=== PATIENT | female | born 1995 | race Caucasian/White ===

== ENCOUNTER 2019-07-22 13:37 | Inpatient (IN) ==
[2019-07-22] MEDS ORDERED: Ondansetron 4 MG/2 ML VIAL IVP PRN ×2 (15:01→15:39)
[2019-07-22] MEDS ORDERED: Naloxone 0.4 MG/ML INJ IVP PRN ×2 (15:01→15:39)
[2019-07-22] MEDS ORDERED: Metoclopramide 10 MG/2 ML VIAL IVP PRN (15:01)
[2019-07-22] MEDS ORDERED: miSOPROStol 25 MCG TABLET VG PRN (15:01)
[2019-07-22] MEDS ORDERED: *HR* Nalbuphine 10 MG/ML AMPUL IVP PRN (15:01)
[2019-07-22] MEDS ORDERED: Famotidine 20 MG/2 ML VIAL IVP PRN (15:01)
[2019-07-22] MEDS ORDERED: Oxytocin 20 units/ LR 1000 mL 20 UNIT/1,000 ML BAG IVC SCH (15:15)
[2019-07-22] MEDS ORDERED: C1 ESTERASE INHIBITOR IVP SCH ×2 (15:15→15:30)
[2019-07-22] MEDS ORDERED: Ringers Solution, Lactated 1,000 ML IVC SCH (15:15)
[2019-07-22] MEDS ORDERED: FIRAZYR SQ PRN ×2 (15:22→15:30)
[2019-07-22] MEDS ORDERED: *HR* FentaNYL (PF) 100 MCG/2 ML VIAL EP ONE (15:39)
[2019-07-22] MEDS ORDERED: Ropivacaine/PF 0.2% 20 ML VIAL EP ONE (15:39)
[2019-07-22] MEDS ORDERED: EPHEDrine 50 MG/ML VIAL IVP PRN (15:39)
[2019-07-22] MEDS ORDERED: Epidural Premix (fent/bupiv) 110 ML EP SCH (15:45)
[2019-07-22 16:01] LABS: Basophils % 0.4 %; Eosinophils % 0.1 %; Hematocrit 38.9 % (35.3-44.9); Hemoglobin 12.9 g/dL (11.5-15.4); Immature Granulocytes % 0.2 % (0-4); Lymphocytes # 1.7 K/mcL (0.6-4.6); Lymphocytes % 20.2 %; Mean Corpuscular HGB Conc 33.2 g/dL (31.6-35.5); Mean Corpuscular Hemoglobin 29.5 pg (28.0-33.3); Mean Platelet Volume 10.9 fL (9.4-12.4); Monocytes # 0.3 K/mcL (0.0-1.3); Monocytes % 3.5 %; Neutrophils # 6.3 K/mcL (1.6-8.9); Platelet Count 158 K/mcL (140-400); Red Blood Count 4.37 M/mcL (3.82-4.97); Red Cell Distribution Width 14.3 % (11.5-14.5); Segmented Neutrophils % 75.6 %; White Blood Count 8.3 K/mcL (4.3-11.1)
--- NOTE | 2019-07-22 16:07 | Anesthesia Evaluation PreOp ---
Date of Encounter: 07/22/19 Time of Encounter: 16:00 - Past History Planned Operation: BUCK Cardiac History: Denies any Significant Hx Pulmonary History: Denies Any Significant HX BREAKER LAYER History: Other (history of mild backaches with chiropractor use.) Other Medical History: GERD, Other (Hereditary angioedema, treated with Cinryze and Firazyr. Last episode of swelling was several months ago. Patient states that triggers include pain. History of stomach ulcer, gestational diabetes- metformin controlled.) Anesthesia History: No Prior Anesthetic Complications, Past Anesthesia (Previous epidural without complication, wisdom teeth extraction, Nasal surgery post fracture, and EGD) : Yes Alcohol Use: none Drug use: none Medications and Allergies Omeprazole [PriLOSEC] 40 mg PO DAILY 03/31/17 [History] C1 Esterase Inhibitor [Cinryze] 1 vial IV 2XW 05/12/17 [History] Icatibant Acetate [Firazyr] 30 mg SQ AD 05/12/17 [History] Vitamin Tablet 1 tab PO DAILY 07/22/19 [History] metFORMIN 1,000 mg PO HS 07/22/19 [History] Allergy/AdvReac Type Severity Reaction Status Date / Time ciprofloxacin [From Cipro] AdvReac Hives Verified 11/22/18 13:42 - Meds/Allergy Pre-op Review Medications Reviewed: Yes Allergies Reviewed: Yes Beta Blockers on Current Med List: No Anesthesia Results - Labs 07/22/19 15:40 Anesthesia Exam BP 126/71 P 75 R 16 T 98.3 Height: 5'6" Weight: 94.8kg NPO (# of Hours): 4hr solids 1hr clears Pain Scale: 2 Pain Scale Used: Numeric (1 - 10) - HEENT Pupil (Motor): Pupils equal Mallampati: II Teeth: Normal Oral Opening: Greater than 3 - BREAKER LAYER LOC: Oriented BREAKER LAYER Motor: Normal RUE, Normal LUE, Normal RLE, Normal LLE, Normal Face BREAKER LAYER Sensory: Normal: RUE, LUE, RLE, LLE, Face - Cardiac Rhythm: Regular Murmur: None JVD: No Carotid Bruit: No - Pulmonary Breath Sounds: bilateral Clear Respiratory Effort: Symmetrical Anesthesia Assess/Plan ASA Score: 3 Level of consciousness: Cooperative, Oriented, Tranquil Anesthetic Plan: Epidural Autologous Blood: No Monitoring Plan: Standard Monitors Recovery Plan: Other
--- NOTE | 2019-07-22 17:25 | Event Note ---
Date of Encounter: 07/22/19 Time of Encounter: 17:23 Discussed double cervical wise balloon placement and patient is agreeable to this plan along with vaginal Cytotec. Double cervical wise balloon inserted without difficulty, 60mL sterile water instilled into uterine balloon, 40mL sterile water instilled into vaginal balloon. Patient tolerated with minimal discomfort.
--- NOTE | 2019-07-22 17:36 | OB/GYN History & Physical ---
Date of Encounter: 07/22/19 Time of Encounter: 17:19 Assessment and Plan (1) and not yet delivered in third trimester Current visit: Yes Status: Acute (2) 37 weeks gestation of Current visit: Yes Status: Acute (3) IUGR (intrauterine growth restriction) Current visit: Yes Status: Acute (4) Oligohydramnios Current visit: Yes Status: Acute Patient will be induced with Gerber catheter and Cytotec plan is to anticipate normal spontaneous vaginal delivery patient will need an early epidural to help with pain control Qualifiers: Fetus number: single or unspecified fetus Trimester: third trimester Qualified Code(s): O41.03X0 - Oligohydramnios, third trimester, not applicable or unspecified (5) Hereditary angioedema Current visit: Yes Status: Acute patient will give herself Cinryze prior to induction History of Present Illness HPI: Ms. Nails is a 24 year old female 2 para 1 at 37-5/7 weeks who was sent in from the office secondary to the IUGR with oligohydramnios. Patient was seen recently at [facility] for intrauterine growth restriction baby was at the 15th percentile and amniotic fluid index was 4.9. Patient suffers with angioedema is being followed by Dr. Delacruz manager parking. Patient's flareup is if she gets stressed to has pain she has Cinryze which she guesses self IV prior to any episodes or if she is having outbreak. Patient was counseled that she would need to give herself a dose before induction to prevent a potential flareup. Gestational diabetic on metformin states blood sugars have been running well did not do one this morning. She denies any leaking of fluid is still having good movement has been having contractions on and off for the last 2-3 days. Patient is A positive, GBS negative, rubella positive, Varicella positive Past Med Surg Social Fam HX - Past Medical History Source: patient, old records reviewed Additional medical history: Hereditary angioedema, gestational diabetes, Psychiatric history: anxiety - Past Surgical History Additional surgical history: reconstructive nasal sx, wisdom teeth - Social History Smoking Status: Current some day smoker Packs per day: <0.5 Smokeless Tobacco Status: No Alcohol use: none Drug use: none Occupational status: employed Current living situation: Home - Independent Activity Level: Independent ambulation Recent Out of Country Travel Within the Last 8 Weeks: No Exposure or Possible Exposure to Illness During Travel: No - Family History Father Living Status: Still Living Hx Family Cardiac Disorders: Yes Hx Family Respiratory Disorders: No Hx Family Cancer: No Hx Family GI Disorders: No Hx Family Genitourinary Disorders: No Hx Family Endocrine Disorder: No Hx Family Musculoskeletal Disorders: No Hx Family Neuromuscular Disorders: No Hx Family Neurologic Disorders: No Hx Family HEENT Disorders: No Hx Family Autoimmune Disorders: No Hx Family Reproductive Disorders: No Hx Family Psychosocial Disorders: No Hx Family Medical Disorders: No - Additional Family History Additional family history: Family history noncontributory at this time Obstetrical History - Pregnancies : 2 Para: 1 Term: 0 : 0 Ab's: 0 Livin Medications and Allergies Omeprazole [PriLOSEC] 40 mg PO DAILY 03/31/17 [History] C1 Esterase Inhibitor [Cinryze] 1 vial IV 2XW 05/12/17 [History] Icatibant Acetate [Firazyr] 30 mg SQ AD 05/12/17 [History] Vitamin Tablet 1 tab PO DAILY 07/22/19 [History] metFORMIN 1,000 mg PO HS 07/22/19 [History] Allergy/AdvReac Type Severity Reaction Status Date / Time ciprofloxacin [From Cipro] AdvReac Hives Verified 11/22/18 13:42 Review of System OB All systems PM: reviewed and no additional remarkable complaints except as stated Exam - Constitutional Constitutional: well developed, well nourished, no acute distress, average body habitus - HEENT HEENT: EOMI, PERRL, Mucus Membranes Moist - Neck Neck exam: full ROM - Lungs Respiratory exam: CTAB - Cardiovascular Cardiovascular exam: RRR - Abdomen Abdomen: Present: bowel sounds normal, gravid ( heart tones 140s reactive occasional contractions seen) - Vagina Vagina: Present: normal moisture - Cervix Dilation: 1 Station: -3 (50) Results Result Diagrams: 07/22/19 15:40 All other labs normal. - VTE Reasons for not Prescribing Prophylaxis: Treatment not Indicated - Low risk for VTE
[2019-07-22] MEDS ORDERED: *HR* FentaNYL (PF) 100 MCG/2 ML VIAL ONE (19:49)
[2019-07-22 21:00] LABS: Amphetamine Screen,Urine Negative ng/mL (Cutoff=1000); Barbiturate Screen,Urine Negative ng/mL (Cutoff=200); Benzodiazepines Screen,Urine Negative ng/mL (Cutoff=200); Cannabinoid Screen,Urine Negative ng/mL (Cutoff = 50); Cocaine Screen,Urine Negative ng/mL (Cutoff= 300); Opiate Screen,Urine Negative ng/mL (Cutoff=300); Phencyclidine Screen,Urine Negative ng/mL (Cutoff=25)
--- NOTE | 2019-07-22 21:41 | Anesthesia Procedures ---
Date of Encounter: 07/22/19 Time of Encounter: 20:54 Procedures: Anesthesia - Epidural/Spinal Patient ID/Chart reviewed: Yes Patient examined: Yes OB Eval: Gestational age: 37.5 OB Eval: : 2 OB Eval: Hx Para: 1 OB Eval: Dilated at (cm): 3 OB Eval: Contractions: Non-stressed pattern Consent Obtained: Yes Supplemental Oxygen: None/Room Air Site Prep: Aseptic Technique, Sterile prep and drape, Povidone-Iodine 1% Patient position: upright Local Anesthetic: Lidocaine 1% Amount of Local Anesthetic used: 3 Touhy Needle Gauge: 18 Touhy Needle Depth (cm): 6 Catheter Depth at Skin (cm): 15 Test Dose (1.5% Lido + Epi): Volume given (mls): 3 Test Dose Result: Negative Loading Dose: Fentanyl (mcg): 100 Loading Dose: Other: Ropivicaine 0.2% 5ml, 3ml Normal saline Loading Dose Administered: Thru Catheter Infusion Rate (mls/hr): [address]: Tegaderm, Tape Interspace Used: L3-L4 Loss of Resistance (EDEN): Yes Blood: No CSF: No Paresthesia: No Procedure: BUCK placed 1st pass in upright position. EDEN achieved with normal saline. Catheter threaded with ease to 15cm at the skin. Test dose negative. Pt stated comfort with epidural bolus dose administration. VSS throughout. Vitals + FHT's: 2054 BP 145/67 P 97 R 20 2125 BP 140/76 P 85 R 16
--- NOTE | 2019-07-22 23:11 | OB Labor Progress Note ---
Date of Encounter: 07/22/19 Time of Encounter: 23:09 Labor Progress Note - Subjective Subjective: Patient comfortable after her epidural Gerber catheter was out and she is now ruptured. Has been having some late decelerations is on no additional augmentation at this time. Did discuss with the patient of this does not resolve and she does not continue to progress cervically we may have to do a section. - Cervix Cervix: 4-5/80/-3 - Heart Tones Heart Tones: heart tones 140s reactive with occasional late decelerations noted - [place]: Contractions every 2-3 minutes - Interventions Interventions: Continue current care we will do positional changes it is not resolved. Will Talk to patient again about section
[2019-07-23] MEDS ORDERED: Ropivacaine/PF 0.2% 20 ML VIAL ONE (00:25)
[2019-07-23] MEDS ORDERED: *HR* Oxytocin 10 UNIT/ML VIAL IM ONE (00:28)
[2019-07-23] MEDS ORDERED: Ondansetron 4 MG/2 ML VIAL ONE (00:39)
[2019-07-23] MEDS ORDERED: *HR* Morphine Sulfate/PF 10 MG/10 ML AMPUL ONE (00:40)
[2019-07-23] MEDS ORDERED: Ibuprofen 400 MG TABLET PO PRN (01:17)
[2019-07-23] MEDS ORDERED: *HR* OxyCODONE/APAP 5/325 TABLET PO PRN (01:17)
--- NOTE | 2019-07-23 01:28 | OB/GYN Procedure Note ---
Section - Date of procedure: 07/23/19 Preop diagnosis: other (Urine at 37-5/7 weeks, intrauterine growth restriction, oligohydramnios, category 3 tracing with repetitive late decelerations) Post-op diagnosis: same (With placental abruption) Procedure: primary low transverse Surgeon: Ignacio Herrmann Blood Loss: 500 Was there an human services assistant present: Yes Alarm Mechanism Adjuster: Kendall Davis (OMS 3) Patient Financial Counselor: Satinder Echeverria Anesthesia Type: Epidural section complications: none Disposition: L&D Recovery Room Specimens: Placenta, Cord gasses - Infant (s) Infant A Infant Delivery Date: 07/23/19 Delivery Time: 00:26 Presentation: vertex Position: JOAQUÍN Route of delivery: other ( section) Gender: Female Viability: Viable Pounds: 4 Ounces: 11 Gram Weight: 2.12 kg at 1 minute: 7 at 5 minutes: 9 Placenta: spontaneous Cord: 3 umbilical vessels - Narrative Narrative: Patient is a 24-year-old 2 para 1 at 37 and 5 5/7 weeks who presented for induction of labor secondary to IUGR with oligohydramnios. Patient had an ultrasound recently at [facility] and showed baby to be IUGR at the 15th percentile amniotic fluid index was 6 cm at that time. Recommended repeat MARGIE today when he performed it was 4.9 patient has a history of hereditary angioedema and patient was sent for induction of labor due to these medical conditions. She is also a gestational diabetic A2 on metformin. Patient was brought to labor and delivery she did receive a Gerber catheter and Cytotec after the catheter was removed she was artificially ruptured. Patient did receive an epidural as soon after was patient started having late decelerations. She did not get any additional augmentation the late decelerations would resolve and then come back. Patient was still 5 cm and she had a deep deceleration down to approximately 60 approximately 60 seconds with slow return to baseline was at this point we called a unscheduled and the patient for section. Procedure: Patient was taken to the operating room where epidural anesthesia was found be adequate. She was placed in the dorsal supine position prepped and draped in usual fashion. We did have heart tones in 130s at this time no decelerations noted. Patient was prepped and draped in the usual fashion and then a Timeout was obtained. A Pfannenstiel incision was made and the incision was carried down through the underlying tissue until the fascia was identified. Fascia was nicked in midline extended laterally with the Moore scissors. The superior and inferior edge of the fascia were grasped tented up and dissected off the rectus muscle. Rectus muscles were in the midline parietal peritoneum was identified tented up and entered sharply. This was extended superiorly and inferiorly with Metzenbaum scissors. A bladder blade was inserted the vesicouterine peritoneum was identified tented up and entered sharply bladder flap was created digitally. The lower uterine segment was incised with a scalpel extended laterally with digital manipulation. The infant's head was brought to the incision followed by the infant the cord was clamped and cut infant was handed off to waiting pediatric dictating. Cord gases were obtained. Cord blood was not necessary at this time. Placenta was then delivered spontaneously. A self-retaining Mikey retractor was placed in the abdomen uterus is then identified cleaned of all clots and debris done in the lower uterine segment was closed using 0 Vicryl in a running locking stitch by 2 layer closure. Good hemostasis was noted. The retractor was removed the gutters were cleaned of all clots and debris then copiously irrigated with no active bleeding noted. The parietal peritoneum was closed using 2-0 Vicryl in a running stitch the fascia was then closed using a #1 stratafix In a running stitch the subcutaneous tissue was closed using a 0 chromic in a running stitch and the skin was closed using 4-0 Vicryl in subcuticular manner. A Prineo dressing was applied and the patient was taken to the recovery room in stable condition. All needles lap sponge counts were correct 3 she did receive preoperative antibiotics.
--- NOTE | 2019-07-23 01:57 | Anesthesia Evaluation Post Op ---
Date of Encounter: 07/23/19 Time of Encounter: 01:52 - Vital Signs Vital Signs: BP 108/57 P 83 R 16 T 98.3 - Lungs Lungs: Clear Ascult./Percussion - Airway Airway: Non-obstructed - Cardiovascular Regular Rate - Mental Status Mental Status: Alert & Oriented, Answers Appropriately - Pain Pain Scale: 2 Pain Scale used: Numeric (1 - 10) - Nausea Vomiting Nausea Vomiting: Not Present - Hydration Hydration: NPO, Gerber catheter - Discharge PostOp Status: Transfer Patient to floor
[2019-07-23] MEDS ORDERED: *HR* OxyCODONE/APAP 10/325 TABLET PO PRN (04:33)
[2019-07-23] MEDS ORDERED: Oxytocin 20 units/ LR 1000 mL 20 UNIT/1,000 ML BAG IVC SCH (04:33)
[2019-07-23] MEDS ORDERED: Ringers Solution, Lactated 1,000 ML IVC SCH (04:33)
[2019-07-23] MEDS ORDERED: Sennosides 8.6 MG TABLET PO PRN (04:33)
[2019-07-23] MEDS ORDERED: Simethicone 80 MG TAB.CHEW PO PRN (04:33)
[2019-07-23] MEDS ORDERED: Ondansetron 4 MG/2 ML VIAL IVP PRN (04:33)
[2019-07-23] MEDS ORDERED: Metoclopramide 10 MG/2 ML VIAL IVP PRN (04:33)
[2019-07-23] MEDS: *HR* OxyCODONE/APAP 5/325 TABLET PO PRN ×3 (04:56→14:40)
[2019-07-23] MEDS ORDERED: Famotidine 20 MG TABLET PO ONE (04:59)
[2019-07-23] MEDS ORDERED: Acetaminophen IV 1,000 MG/100 ML INFUS..BTL IVPB SCH (06:00)
[2019-07-23] MEDS: Prenatal Vit/FA 1 EACH TABLET PO SCH (07:48)
[2019-07-23] MEDS ORDERED: ICATIBANT ACETATE 30 MG SQ PRN (09:00)
[2019-07-23] MEDS ORDERED: FIRAZYR SQ PRN (16:49)
[2019-07-23] MEDS: Ibuprofen 600 MG TABLET PO PRN (18:05)
[2019-07-24] MEDS: Ibuprofen 600 MG TABLET PO PRN ×3 (00:17→16:27)
[2019-07-24] MEDS: *HR* OxyCODONE/APAP 5/325 TABLET PO PRN ×4 (02:08→20:17)
[2019-07-24 07:04] LABS: Basophils % 0.3 %; Eosinophils # 0.1 K/mcL (0.0-0.6); Eosinophils % 1.1 %; Hematocrit 30.3 % (35.3-44.9); Immature Granulocytes % 0.2 % (0-4); Lymphocytes # 1.7 K/mcL (0.6-4.6); Lymphocytes % 27.2 %; Mean Corpuscular HGB Conc 33.3 g/dL (31.6-35.5); Mean Corpuscular Hemoglobin 30.5 pg (28.0-33.3); Mean Corpuscular Volume 91.5 fL (83.0-100.0); Mean Platelet Volume 10.8 fL (9.4-12.4); Monocytes # 0.3 K/mcL (0.0-1.3); Monocytes % 5.3 %; Neutrophils # 4.1 K/mcL (1.6-8.9); Platelet Count 118 K/mcL (140-400); Red Blood Count 3.31 M/mcL (3.82-4.97); Red Cell Distribution Width 14.4 % (11.5-14.5); Segmented Neutrophils % 65.9 %; White Blood Count 6.3 K/mcL (4.3-11.1)
[2019-07-24 07:11] LABS: Hemoglobin 10.1 g/dL (11.5-15.4)
[2019-07-24] MEDS: Prenatal Vit/FA 1 EACH TABLET PO SCH (08:49)
--- NOTE | 2019-07-24 09:28 | OB/GYN Progress Note ---
Date of Encounter: 07/24/19 Time of Encounter: 09:26 - Assessment and Plan (1) Status post section Current Visit: Yes Status: Acute Patient meeting day two milestones. Pain well-controlled with prescribed medications. Voiding without difficulty, tolerating regular diet, bleeding light. No bowel movement yet. Anticipate discharge (2) Gestational diabetes Current Visit: Yes Status: Acute Follow up in 4-12 weeks for 2-hr GTT Qualifiers: Gestational diabetes mellitus control: oral hypoglycemic-controlled Trimester: unspecified trimester Qualified Code(s): O24.415 - Gestational diabetes mellitus in , controlled by oral hypoglycemic drugs (3) Hereditary angioedema Current Visit: Yes Status: Acute Patient has meds at bedside should a flare occur. (4) Breast feeding status of mother Current Visit: Yes Status: Acute support as needed Will provide breast pump prescription Subjective - Subjective Principal diagnosis: Status post primary section Interval history: Date of procedure: 07/23/19 Preop diagnosis: other (Urine at 37-5/7 weeks, intrauterine growth restriction, oligohydramnios, category 3 tracing with repetitive late decelerations) Post-op diagnosis: same (With placental abruption) Procedure: primary low transverse Surgeon: Ignacio Velez Quantitated Blood Loss: 500 Was there an retail sales assistant present: Yes Pipe Fitter Gas Pipe: Kendall Davis (OMS 3) Finish Filer: Satinder Echeverria Anesthesia Type: Epidural section complications: none Disposition: L&D Recovery Room Specimens: Placenta, Cord gasses - (s) Infant A Infant Delivery Date: 07/23/19 Delivery Time: 00:26 Presentation: vertex Position: JOAQUÍN Route of delivery: other ( section) Gender: Female Viability: Viable Pounds: 4 Ounces: 11 Gram Weight: 2.12 kg at 1 minute: 7 at 5 minutes: 9 Placenta: spontaneous Cord: 3 umbilical vessels - Narrative Narrative: Patient is a 24-year-old 2 para 1 at 37 and 5 5/7 weeks who presented for induction of labor secondary to IUGR with oligohydramnios. Patient had an ultrasound recently at [facility] and showed baby to be IUGR at the 15th percentile amniotic fluid index was 6 cm at that time. Recommended repeat MARGIE today when he performed it was 4.9 patient has a history of hereditary angioedema and patient was sent for induction of labor due to these medical conditions. She is also a gestational diabetic A2 on metformin. Patient was brought to labor and delivery she did receive a Gerber catheter and Cytotec after the catheter was removed she was artificially ruptured. Patient did receive an epidural as soon after was patient started having late decelerations. She did not get any additional augmentation the late decelerations would resolve and then come back. Patient was still 5 cm and she had a deep deceleration down to approximately 60 approximately 60 seconds with slow return to baseline was at this point we called a unscheduled and the patient for section. Procedure: Patient was taken to the operating room where epidural anesthesia was found be adequate. She was placed in the dorsal supine position prepped and draped in usual fashion. We did have heart tones in 130s at this time no decelerations noted. Patient was prepped and draped in the usual fashion and then a Timeout was obtained. A Pfannenstiel incision was made and the incision was carried down through the underlying tissue until the fascia was identified. Fascia was nicked in midline extended laterally with the Moore scissors. The superior and inferior edge of the fascia were grasped tented up and dissected off the rectus muscle. Rectus muscles were in the midline parietal peritoneum was identified tented up and entered sharply. This was extended superiorly and inferiorly with Metzenbaum scissors. A bladder blade was inserted the vesicouterine peritoneum was identified tented up and entered sharply bladder flap was created digitally. The lower uterine segment was incised with a scalpel extended laterally with digital manipulation. The infant's head was brought to the incision followed by the the cord was clamped and cut was handed off to waiting pediatric dictating. Cord gases were obtained. Cord blood was not necessary at this time. Placenta was then delivered spontaneously. A self-retaining Mikey retractor was placed in the abdomen uterus is then identified cleaned of all clots and debris done in the lower uterine segment was closed using 0 Vicryl in a running locking stitch by 2 layer closure. Good hemostasis was noted. The retractor was removed the gutters were cleaned of all clots and debris then copiously irrigated with no active bleeding noted. The parietal peritoneum was closed using 2-0 Vicryl in a running stitch the fascia was then closed using a #1 stratafix In a running stitch the subcutaneous tissue was closed using a 0 chromic in a running stitch and the skin was closed using 4-0 Vicryl in subcuticular manner. A Prineo dressing was applied and the patient was taken to the recovery room in stable condition. All needles lap sponge counts were correct 3 she did receive preoperative antibiotics. Patient reports: appetite normal, voiding normally, pain well controlled, ambulating normally [place]: doing well, nursing well Objective - Vital Signs Latest vital signs: Vital Signs Temp Pulse Resp BP Pulse Ox 07/24/19 08:27 98.0 F 85 14 134/88 99 07/23/19 20:18 98.0 F 87 14 111/69 98 07/23/19 16:00 98.2 F 84 18 123/72 99 07/23/19 12:30 97.6 F 85 16 118/80 96 07/23/19 12:00 98.8 F 83 16 110/67 100 Intake and Output 07/23/19 07/24/19 07/24/19 23:59 07:59 15:59 Output Total 600 / 1900 700 / 700 Balance -600 / -1900 -700 / -700 Output: Urine 600 / 600 700 / 700 - Exam Lungs: bilateral: normal Chest: Normal S1, Normal S2 Extremities: Present: normal Abdomen: Present: normal appearance, soft. Absent: distention, tenderness Uterus: Present: normal, firm Fundal Height: 0 (@U) - Labs Labs: Laboratory Results - last 24 hr 07/24/19 06:07 WBC 6.3 RBC 3.31 L Hgb 10.1 L D Hct 30.3 L MCV 91.5 MCH 30.5 MCHC 33.3 RDW 14.4 Plt Count 118 L MPV 10.8 Immature Gran % 0.2 Seg Neutrophils % 65.9 Lymphocytes % 27.2 Monocytes % 5.3 Eosinophils % 1.1 Basophils % 0.3 Neutrophils # 4.1 Lymphocytes # 1.7 Monocytes # 0.3 Eosinophils # 0.1 Basophils # 0.0
[2019-07-25] MEDS: Ibuprofen 600 MG TABLET PO PRN ×2 (00:55→07:21)
[2019-07-25] MEDS: *HR* OxyCODONE/APAP 5/325 TABLET PO PRN ×2 (00:55→08:58)
[2019-07-25 08:20] VITALS: BP 125/80
[2019-07-25] MEDS: Prenatal Vit/FA 1 EACH TABLET PO SCH (08:58)
[2019-07-25] MEDS ORDERED: C1 ESTERASE INHIBITOR IVP SCH ×2 (09:00)
--- NOTE | 2019-07-25 10:44 | Discharge Summary ---
Date of Encounter: 07/25/19 Time of Encounter: 10:42 - Discharge Diagnosis (1) Breast feeding status of mother Priority: Secondary Status: Acute Comments: continue routine support prn RX for breast pump (2) Gestational diabetes Priority: Secondary Status: Acute Comments: 2 hour GTT 6 weeks Qualifiers: Gestational diabetes mellitus control: oral hypoglycemic-controlled Trimester: unspecified trimester Qualified Code(s): O24.415 - Gestational diabetes mellitus in , controlled by oral hypoglycemic drugs (3) Hereditary angioedema Priority: Secondary Status: Acute Comments: Discussed possible discharge home today with Dr. Vazquez. She feels there is no reason to keep patient for 72 hours, may discharge home today. (4) Status post section Priority: Secondary Status: Acute Comments: continue routine care discharge home today follow up with Dr. Velez in 2 weeks for incision check - Discharge Medications Prescriptions: New Breast Pump [BREAST PUMP] 1 each .ROUTE AD #1 each Docusate [Colace] 100 mg PO BID #30 capsule Ibuprofen [Motrin] 600 mg PO Q6H PRN #60 tablet PRN Reason: Cramping Patient Taking Own Medication 0 each SQ ONCE PRN each PRN Reason: HEREDITARY ANGIOEDEMA Patient Taking Own Medication 0 each IVP MoTh each OxyCODONE/APAP 5/325 [Percocet 5/325 MG] 1 each PO Q6H PRN 5 Days #20 tablet PRN Reason: Mild To Moderate Pain Continued Icatibant Acetate [Firazyr] 30 mg SQ AD C1 Esterase Inhibitor [Cinryze] 1 vial IV 2XW Vitamin Tablet 1 tab PO DAILY Discontinued metFORMIN 1,000 mg PO HS Omeprazole [PriLOSEC] 40 mg PO DAILY Home Medications: C1 Esterase Inhibitor [Cinryze] 1 vial IV 2XW 05/12/17 [History] Icatibant Acetate [Firazyr] 30 mg SQ AD 05/12/17 [History] Vitamin Tablet 1 tab PO DAILY 07/22/19 [History] Breast Pump [BREAST PUMP] 1 each .ROUTE AD #1 each 07/25/19 [Rx] Docusate [Colace] 100 mg PO BID #30 capsule 07/25/19 [Rx] Ibuprofen [Motrin] 600 mg PO Q6H PRN #60 tablet 07/25/19 [Rx] OxyCODONE/APAP 5/325 [Percocet 5/325 MG] 1 each PO Q6H PRN 5 Days #20 tablet 07/25/19 [Rx] Patient Taking Own Medication 0 each IVP MoTh each 07/25/19 [Rx] Patient Taking Own Medication 0 each SQ ONCE PRN each 07/25/19 [Rx] Allergies/Adverse Reactions: Allergy/AdvReac Type Severity Reaction Status Date / Time ciprofloxacin [From Cipro] AdvReac Hives Verified 11/22/18 13:42 Data Procedures and tests throughout hospitalization: Laboratory Tests 07/22/19 07/22/19 07/22/19 15:40 15:40 19:27 WBC 8.3 RBC 4.37 Hgb 12.9 Hct 38.9 MCV 89.0 MCH 29.5 MCHC 33.2 RDW 14.3 Plt Count 158 MPV 10.9 Immature Gran % 0.2 Seg Neutrophils % 75.6 Lymphocytes % 20.2 Monocytes % 3.5 Eosinophils % 0.1 Basophils % 0.4 Neutrophils # 6.3 Lymphocytes # 1.7 Monocytes # 0.3 Eosinophils # 0.0 Basophils # 0.0 Glucose 66 L POC Glucose 82 Urine Opiates Screen Ur Buprenorphine Scrn Ur Barbiturates Screen Ur Phencyclidine Scrn Ur Amphetamines Screen U Benzodiazepines Scrn Urine Cocaine Screen U Marijuana (THC) Screen Ur Drug Screen Interp 07/22/19 07/24/19 20:35 06:07 WBC 6.3 RBC 3.31 L Hgb 10.1 L D Hct 30.3 L MCV 91.5 MCH 30.5 MCHC 33.3 RDW 14.4 Plt Count 118 L MPV 10.8 Immature Gran % 0.2 Seg Neutrophils % 65.9 Lymphocytes % 27.2 Monocytes % 5.3 Eosinophils % 1.1 Basophils % 0.3 Neutrophils # 4.1 Lymphocytes # 1.7 Monocytes # 0.3 Eosinophils # 0.1 Basophils # 0.0 Glucose POC Glucose Urine Opiates Screen Negative Ur Buprenorphine Scrn Negative Ur Barbiturates Screen Negative Ur Phencyclidine Scrn Negative Ur Amphetamines Screen Negative U Benzodiazepines Scrn Negative Urine Cocaine Screen Negative U Marijuana (THC) Screen Negative Ur Drug Screen Interp See Below Date of admission: 07/22/19 13:37 Primary care physician: Daiana Hutchins CNP Discharging clinician: Opal Horne Anticipated date of discharge: 07/25/19 - Patient Status Disposition: Home, Self-Care Condition: Good Functional capacity at discharge: independent ambulation - Discharge Instructions Follow Up With: Daiana Hutchins CNP [Primary Care Provider] - Ruiz Daniel MD [Partnered Physician] - - Diet and Activity Activity: increase activity as tolerated Diet: regular diet Hospital Course Procedures: oarrs report reviewed prior to discharge by JUDIT Noguera Reason for admission: induction of labor Delivery: section (primary for Cat 3 tracing) Laceration: none Other procedures: none complications: none Discharge diagnosis: IUP at term delivered baby: female (breast feeding) Time Attestation: Total time spent providing and/or coordinating discharge services: Time Spent: Less than 30 minutes - VTE Reasons for not Prescribing Prophylaxis: Treatment not Indicated - Low risk for VTE Documentation of Mechanical Device: Intermittent pneumatic compression device Exam - Constitutional Vitals: Temp Pulse Resp BP Pulse Ox 98.6 F 84 14 125/80 99 07/25/19 08:18 07/25/19 08:18 07/25/19 09:55 07/25/19 08:07/25/19 08:18 General appearance IM: A&O X 3, pleasant, answers questions appropriately - Respiratory Respiratory exam: Present: CTAB - Cardiovascular Cardiovascular exam IM: Present: RRR, +S1, +S2 - GI/Abdominal GI/Abdominal exam IM: normal bowel sounds Incision: normal, dry, intact, dressed (jordin) - Uterine Tone: Firm Uterus Position: 3 Fingers Below Umbilicus, Midline - Extremities Exam Extremities exam IM: Present: full ROM, normal inspection - Neurological Exam Neurological exam: alert, oriented X3, reflexes normal
== END 2019-07-25 11:15 | disposition home or self-care (01) | DRG 786 ==
LOC: 1NENULAB 13:37 → 1NENUOBS 07-23 03:10 → 1NENULAB 07-23 03:21 → 1NENUOBS 07-23 03:50
PROVIDERS: ADMIT Registered Nurse; ATTEND Obstetrics & Gynecology